=== PATIENT | male | born 1945 | race Caucasian/White ===

== ENCOUNTER 2019-08-12 15:46 | Inpatient (IN) ==
[2019-08-12] MEDS ORDERED: *HR* Heparin 5,000 UNIT/ML VIAL IVP PRN ×2 (21:19)
[2019-08-12] MEDS ORDERED: Heparin 25,000 UNIT/250 ML D5W 25,000 UNIT/250 ML IV.SOLN IVC SCH (21:30)
[2019-08-12] MEDS ORDERED: Naloxone 0.4 MG/ML INJ IVP PRN (21:53)
[2019-08-12 22:21] LABS: Basophils % 0.2 %; Hematocrit 38.6 % (37.5-50.1); Hemoglobin 12.8 g/dL (12.9-16.9); Immature Granulocytes % 1.1 % (0-4); Lymphocytes # 0.3 K/mcL (0.6-4.6); Lymphocytes % 1.8 %; Mean Corpuscular HGB Conc 33.2 g/dL (31.6-35.5); Mean Corpuscular Volume 93.5 fL (83.0-100.0); Mean Platelet Volume 11.4 fL (9.4-12.4); Neutrophils # 14.8 K/mcL (1.6-8.9); Nucleated Red Blood Cells 3.5 /100 WBC (0); Platelet Count 136 K/mcL (140-400); Red Blood Count 4.13 M/mcL (4.19-5.50); Red Cell Distribution Width 16.3 % (11.5-14.5); Segmented Neutrophils % 90.9 %; White Blood Count 16.3 K/mcL (4.3-11.1)
[2019-08-12 22:27] LABS: INR 3.6; Prothrombin Time 40.7 Seconds (9.4-12.1)
[2019-08-12 22:30] LABS: Activated Partial Thrombo Time 62.5 Seconds (26.0-36.0)
[2019-08-12] MEDS ORDERED: Ondansetron 4 MG/2 ML VIAL IVP PRN (22:34)
[2019-08-12 22:50] LABS: Albumin 3.5 g/dL (3.5-5.7); Albumin/Globulin Ratio 1.5 (1.1-2.2); Bilirubin,Total 1.6 mg/dL (0.3-1.0); Calcium 8.5 mg/dL (8.6-10.3); Chol/HDL Ratio 3.7 (0-4.9); Globulin 2.3 g/dL (2.4-3.5); Magnesium 2.8 mg/dL (1.6-2.6); Phosphorous 4.8 mg/dL (2.7-4.5); Potassium 4.7 mEq/L (3.5-5.1); Total Protein 5.8 g/dL (6.4-8.9); Troponin I 3.77 ng/mL (< 0.04)
[2019-08-12 22:52] LABS: Heparin anti-factor XA UFH > 2.00 IU/mL (0.30-0.70)
[2019-08-12 23:00] LABS: Hepatitis B Surface Antigen Nonreactive (Nonreactive)
[2019-08-12 23:29] LABS: Hepatitis B Core IgM Nonreactive (Nonreactive)
[2019-08-12 23:30] LABS: Hepatitis A Antibody IgM Nonreactive (Nonreactive); Hepatitis C Virus Antibody Nonreactive (Nonreactive)
[2019-08-13] MEDS ORDERED: Albuterol 2.5 MG/3 ML NEBULIZER IH PRN (03:08)
[2019-08-13] MEDS: Ipratropium/Albuterol Neb 3 ML IH SCH ×4 (04:00→22:31)
[2019-08-13 05:46] LABS: Hematocrit 39.6 % (37.5-50.1); Mean Corpuscular HGB Conc 32.8 g/dL (31.6-35.5); Mean Corpuscular Hemoglobin 30.5 pg (28.0-33.3); Mean Platelet Volume 11.7 fL (9.4-12.4); Platelet Count 157 K/mcL (140-400); Red Blood Count 4.26 M/mcL (4.19-5.50); Red Cell Distribution Width 16.4 % (11.5-14.5); White Blood Count 16.8 K/mcL (4.3-11.1)
[2019-08-13 05:49] LABS: INR 2.8; Prothrombin Time 31.8 Seconds (9.4-12.1)
[2019-08-13 06:12] LABS: Albumin 3.5 g/dL (3.5-5.7); Albumin/Globulin Ratio 1.5 (1.1-2.2); Bilirubin,Direct 0.9 mg/dL (0.0-0.2); Bilirubin,Indirect 0.7 mg/dL (0.0-1.0); Bilirubin,Total 1.6 mg/dL (0.3-1.0); Calcium 8.9 mg/dL (8.6-10.3); Globulin 2.3 g/dL (2.4-3.5); Potassium 4.1 mEq/L (3.5-5.1); Total Protein 5.8 g/dL (6.4-8.9); Troponin I 3.12 ng/mL (< 0.04)
[2019-08-13 10:58] LABS: Uric Acid 12.9 mg/dL (2.3-7.6)
[2019-08-13] MEDS ORDERED: Ringers Solution, Lactated 1,000 ML IVC SCH (19:45)
[2019-08-13 22:07] LABS: Bacteria,Urine Few per hpf (None-Few); Bilirubin,Urine Negative (Negative); Blood,Urine Moderate (Negative); Clarity,Urine Turbid (Clear); Color,Urine Yellow (Yellow); Glucose,Urine (UA) Normal (Normal); Ketones,Urine Trace mg/dL (Negative); Leukocyte Esterase,Urine Negative (Negative); Nitrite,Urine Negative (Negative); PH,Urine 5.5 pH Units (5.0-8.0); Protein,Urine 50 mg/dL (Neg-Trace); Specific Gravity,Urine 1.018 (1.010-1.025); Squamous Epithelial Cell,Urine Few per hpf (None-Few); Urobilinogen,Urine Normal (Normal); WBC,Urine 0-3 per hpf (0-3)
[2019-08-13 22:40] LABS: Protein/Creatinine Ratio,Urine 1.39 mg/mg (0.00-0.20); Sodium, Urine 48.2 mEq/L
[2019-08-13] MEDS ORDERED: Amiodarone Premix 360 MG/200 ML BAG IVC ONE (22:51)
[2019-08-14] MEDS ORDERED: 0.9 % Sodium Chloride 250 ML ONE (00:33)
[2019-08-14] MEDS ORDERED: 0.9 % Sodium Chloride 250 ML IVC ONE (00:38)
[2019-08-14 01:05] LABS: VBG Ionized Calcium 1.05 mmol/L (1.15-1.35)
[2019-08-14 01:10] LABS: Basophils % 0.1 %; Hematocrit 37.7 % (37.5-50.1); Hemoglobin 12.2 g/dL (12.9-16.9); Immature Granulocytes % 1.4 % (0-4); Lymphocytes # 0.2 K/mcL (0.6-4.6); Lymphocytes % 1.3 %; Mean Corpuscular HGB Conc 32.4 g/dL (31.6-35.5); Mean Corpuscular Hemoglobin 30.7 pg (28.0-33.3); Mean Corpuscular Volume 94.7 fL (83.0-100.0); Mean Platelet Volume 11.8 fL (9.4-12.4); Monocytes # 0.8 K/mcL (0.0-1.3); Monocytes % 4.5 %; Neutrophils # 15.5 K/mcL (1.6-8.9); Platelet Count 169 K/mcL (140-400); Red Blood Count 3.98 M/mcL (4.19-5.50); Red Cell Distribution Width 16.8 % (11.5-14.5); Segmented Neutrophils % 92.7 %; White Blood Count 16.7 K/mcL (4.3-11.1)
[2019-08-14 01:29] LABS: Albumin 3.3 g/dL (3.5-5.7); Albumin/Globulin Ratio 1.3 (1.1-2.2); Bilirubin,Total 1.6 mg/dL (0.3-1.0); Calcium 8.6 mg/dL (8.6-10.3); Globulin 2.5 g/dL (2.4-3.5); Magnesium 2.8 mg/dL (1.6-2.6); Phosphorous 4.3 mg/dL (2.7-4.5); Potassium 5.1 mEq/L (3.5-5.1); Total Protein 5.8 g/dL (6.4-8.9); Troponin I 2.07 ng/mL (< 0.04)
[2019-08-14] MEDS ORDERED: Melatonin 3 MG TABLET PO PRN (01:31)
[2019-08-14] MEDS: Ipratropium/Albuterol Neb 3 ML IH SCH ×2 (03:52→10:33)
[2019-08-14] MEDS ORDERED: Amiodarone Premix 360 MG/200 ML BAG IVC SCH ×2 (04:50→05:15)
[2019-08-14] MEDS ORDERED: Metoprolol XL (24 HR) Succ 25 MG TAB.ER.24H PO SCH (09:00)
[2019-08-14] MEDS ORDERED: Piperacillin/Tazobactam 3.375 GM in 0.9 % Sodium Chloride Mini Bag 100 ML IVPB SCH (11:00)
[2019-08-14] MEDS ORDERED: Atropine Sulfate 1% 40 DROP/2 ML BOTTLE SL PRN (12:55)
[2019-08-14] MEDS ORDERED: *HR* LORazepam Oral Conc 2 MG/ML PO PRN (12:55)
[2019-08-14 13:13] VITALS: BP 128/80
== END 2019-08-14 16:00 | disposition hospice, inpatient (51) | DRG 438 ==
LOC: 2ANU → SUATTDRO 19:54 → 2NNU 08-13 23:39
PROVIDERS: ADMIT Internal Medicine; ATTEND Internal Medicine